=== PATIENT | male | born 1955 | race Caucasian/White ===

== ENCOUNTER 2019-03-05 10:50 | Inpatient (IN) | payer BC ==
[~2019-03-05] VITALS: Ht 185.4 cm; Wt 109.1 kg
[~2019-03-05 10:50] MED LIST: DIGO250T PO; DILT120T3 PO; ENOX100S5 SQ; HYDR-3237 PO; IRBE150T49 PO; MAGN400T26 PO; PANT40TA3 PO; POLY17PO5 PO; PRAV40TA2 PO; QUIN20TA17 PO; QUIN40TA15 PO; TRIA1TAB3 PO; WARF5TAB PO; ZOLP10TA5 PO; will bring list
--- NOTE | 2019-03-05 11:14 | NUR ---
EKG COMPLETED IN TRIAGE.
--- NOTE | 2019-03-05 11:25 | NUR ---
PT STATES AMMONIA DISTILLER IS DR. CARRASCO. NO PCP. HASN'T BEEN TO ANY MD IN "A WHILE". DENIES HAVING DX OF HEART FAILURE.
--- NOTE | 2019-03-05 11:35 | NUR ---
PT HAD COUPLE SECONDS RUN OF VTACH NOTED ON MONITOR. RN AND ORACLE PROGRAMMER ANALYST WERE AT BS, PT DID NOT NOTICE EVENT, ORACLE PROGRAMMER ANALYST WAS DRAWING BLOOD AT THE TIME. ERP WAS AT BS IMMEDIATELY FOR RECEHCK. IV STARTED. VSS. PT PLACED ON 2L O2 NC FOR SPO2 91-93% ON RA. POC RV'WD WITH PT.
[2019-03-05 11:47] LABS: BASOPHILS # (AUTO) 0.05 x10^3/uL (0-0.1); BASOPHILS % (AUTO) 1 % (0-1); EOSINOPHILS % (AUTO) 2 % (1-7); LYMPHOCYTES # (AUTO) 0.76 x10^3/uL (1-3.4); LYMPHOCYTES % (AUTO) 13 % (22-44); MD NO; MEAN CORPUSCULAR HEMOGLOBIN 33.6 pg (27.5-34.5); MEAN CORPUSCULAR HGB CONC 32.7 g/dL (33.2-36.2); MEAN CORPUSCULAR VOLUME 102.9 fL (81-97); MEAN PLATELET VOLUME 9.4 fL (7.4-10.4); MONOCYTES # (AUTO) 0.77 x10^3/uL (0.2-0.8); MONOCYTES % (AUTO) 13 % (2-9); NEUTROPHILS # (AUTO) 4.33 x10^3/uL (1.8-6.8); NEUTROPHILS % (AUTO) 72 % (42-75); PLATELET COUNT 147 x10^3/uL (130-400); RED BLOOD COUNT 4.32 x10^6/uL (4.38-5.82); RED CELL DISTRIBUTION WIDTH 15.5 % (9.4-14.8)
[2019-03-05 11:58] LABS: ANION GAP 10 mmol/L (5-15); CALCIUM 9.1 mg/dL (8.5-10.1); CHLORIDE 106 mmol/L (98-107)
[2019-03-05 12:02] LABS: TROPONIN I < 0.015 ng/mL (0.000-0.045)
[2019-03-05 12:03] LABS: D-DIMER 1.1 ug/mlFEU (0.00-0.52); INTERNATIONAL NORMALIZED RATIO 4.68 (0.93-1.1); PROTHROMBIN TIME 46.3 Seconds (9.6-11.5)
[2019-03-05] MEDS ORDERED: QUIN20TA17 PO (12:22)
[2019-03-05] MEDS ORDERED: MULTIVITAMIN PO (12:22)
[2019-03-05] MEDS ORDERED: IRBE300T16 PO (12:22)
--- NOTE | 2019-03-05 12:50 | NUR ---
RV'WD POC WITH PT. PT STABLE AT THIS TIME. DAUGHTER AT BS. AWAITING LE US.
--- NOTE | 2019-03-05 13:07 | NUR ---
PT CHANGED HIS OSTOMY BAG WITHOUT DIFFICULTY. EXTRA SUPPLIES PROVIDED TO PT. CLEAN SHIRT AND PANTS PROVIDED TO PT. D/C INSTRUCTIONS, MEDS & F/U APPT'S RV'WD WITH PT, HE VERBALIZES UNDERSTANDING. RX GIVEN X1. PT AMBULATED OUT OF ED WITHOUT DIFFICULTY.
--- NOTE | 2019-03-05 13:15 | NUR ---
SHELLIE LINK DONE AT BS.
[2019-03-05] MEDS ORDERED: FUROSEMIDE 40 MG/4 ML IV ONE (14:00)
[2019-03-05] MEDS ORDERED: FUROSEMIDE 40 MG/4 ML ONE (14:04)
--- NOTE | 2019-03-05 14:37 | NUR ---
TASK RN: GERARD COMBINE MECHANIC PAGED- WILL EVALUATE IN PERSON TO INTERROGATE PACEMAKER. PAGE SENT OUT NOW.
--- NOTE | 2019-03-05 14:53 | NUR ---
TASK RN: PT'S PACEMAKER BEING INTERROGATED BY MACHINE AT BEDSIDE NOW- RESULTS BEING SENT TO LOCAL SALVAGE WORKER.
--- NOTE | 2019-03-05 14:58 | NUR ---
TASK RN: GERARD PE MANAGER CALLED WITH INTERROGATION RESULTS- STATES PT HAD NON SUSTAINED V-TACH TODAY @ 1128 FOR 31 BEATS AND ANOTHER UNKNOWN NUMBER OF BEATS OF NON-SUSTAINED V-TACH AT 1401. STATES PT IS PACEMAKER DEPENDENT. STATES PT HAS HX OF SAME. (02/18, 02/03, AND JULY OF THIS YEAR)
[2019-03-05] MEDS ORDERED: ONDANSETRON ODT 4 MG PO PRN (15:00)
[2019-03-05] MEDS ORDERED: TRAZODONE 50MG TABLET PO PRN (15:00)
[2019-03-05] MEDS ORDERED: POLYETHYLENE GLYCOL 17 GM PACKET PO PRN ×2 (15:00)
[2019-03-05] MEDS ORDERED: ONDANSETRON 2MG/ML, 2ML IVPush PRN (15:00)
[2019-03-05] MEDS ORDERED: hydrALAzine 20 MG/ML, 1ML IVPush PRN (15:00)
[2019-03-05] MEDS ORDERED: ACETAMINOPHEN 325 MG TABLET PO PRN (15:00)
[2019-03-05] MEDS ORDERED: BUTALB/APAP/CAFFEINE 50MG/325MG/40MG PO PRN ×2 (15:00)
[2019-03-05] MEDS ORDERED: WARFARIN MECH. VALVE PROTOCOL 2.5 to 3.5 XX PRN (15:00)
[2019-03-05] MEDS ORDERED: GUAIFENESIN/DM 200-20MG, 10ML UDC PO PRN (15:00)
--- NOTE | 2019-03-05 15:00 | NUR ---
HOSPITALIST WAS IN TO SEE PT. PT AMBULATED TO BR WITHOUT DIFFICULTY.
[2019-03-05 16:12] VITALS: BP 165/100
[2019-03-05] MEDS ORDERED: PANTOPROZOLE 40MG TABLET PO SCH (16:30)
[2019-03-05] MEDS ORDERED: FUROSEMIDE 40 MG TABLET PO SCH (17:00)
[2019-03-05] MEDS: FUROSEMIDE 40 MG/4 ML IV SCH (17:02)
[2019-03-05] MEDS ORDERED: [UNRECOGNIZED DRUG - REMARK] MC ONE (18:00)
[2019-03-05] MEDS: CARVEDILOL 3.125 MG TABLET PO SCH (18:05)
[2019-03-05 20:34] VITALS: BP 126/84
[2019-03-05] MEDS: PRAVASTATIN 40 MG TABLET PO SCH (21:05)
[2019-03-05] MEDS: DILTIAZEM 120 MG TABLET PO SCH (21:06)
[2019-03-05] MEDS: ZOLPIDEM 10MG TABLET PO PRN (22:45)
[2019-03-06 00:30] VITALS: BP 118/75
[2019-03-06 05:35] LABS: BASOPHILS # (AUTO) 0.06 x10^3/uL (0-0.1); BASOPHILS % (AUTO) 1 % (0-1); EOSINOPHILS # (AUTO) 0.11 x10^3/uL (0-0.4); EOSINOPHILS % (AUTO) 2 % (1-7); LYMPHOCYTES # (AUTO) 0.61 x10^3/uL (1-3.4); LYMPHOCYTES % (AUTO) 10 % (22-44); MD NO; MEAN CORPUSCULAR HEMOGLOBIN 32.9 pg (27.5-34.5); MEAN CORPUSCULAR HGB CONC 32.6 g/dL (33.2-36.2); MEAN CORPUSCULAR VOLUME 100.9 fL (81-97); MEAN PLATELET VOLUME 9.6 fL (7.4-10.4); MONOCYTES # (AUTO) 0.72 x10^3/uL (0.2-0.8); MONOCYTES % (AUTO) 12 % (2-9); NEUTROPHILS # (AUTO) 4.51 x10^3/uL (1.8-6.8); NEUTROPHILS % (AUTO) 75 % (42-75); PLATELET COUNT 118 x10^3/uL (130-400); RED BLOOD COUNT 3.92 x10^6/uL (4.38-5.82); RED CELL DISTRIBUTION WIDTH 15.5 % (9.4-14.8)
[2019-03-06 05:41] LABS: INTERNATIONAL NORMALIZED RATIO 4.62 (0.93-1.1); PROTHROMBIN TIME 45.7 Seconds (9.6-11.5)
[2019-03-06 05:42] LABS: CHLORIDE 106 mmol/L (98-107)
[2019-03-06 05:49] LABS: ALANINE AMINOTRANSFERASE 38 U/L (12-78); ALBUMIN 3.3 g/dL (3.4-5.0); ALKALINE PHOSPHATASE 102 U/L (45-117); ANION GAP 6 mmol/L (5-15); BILIRUBIN,TOTAL 1.5 mg/dL (0.2-1.0); CALCIUM 8.5 mg/dL (8.5-10.1); CREATININE 0.89 mg/dL (0.7-1.3); TOTAL PROTEIN 6.8 g/dL (6.4-8.2)
[2019-03-06 06:10] VITALS: BP 159/98
[2019-03-06] MEDS: CARVEDILOL 3.125 MG TABLET PO SCH (06:15)
[2019-03-06 07:17] VITALS: BP 152/106
[2019-03-06] MEDS ORDERED: HOLD COUMADIN MC PRN (08:00)
[2019-03-06] MEDS: FUROSEMIDE 40 MG/4 ML IV SCH ×2 (08:16→16:56)
[2019-03-06] MEDS: IRBESARTAN 300 MG TABLET PO SCH (08:16)
[2019-03-06] MEDS: DILTIAZEM 120 MG TABLET PO SCH (08:16)
[2019-03-06] MEDS: TRIAMTERENE-HCTZ 37.5/25 MG TABLET PO SCH (08:17)
[2019-03-06] MEDS ORDERED: CARVEDILOL 3.125 MG TABLET PO ONE (08:30)
[2019-03-06] MEDS: POTASSIUM CHLORIDE 20 MEQ TAB.ER.PRT PO SCH ×2 (08:53→16:56)
[2019-03-06] MEDS ORDERED: QUINAPRIL 20MG TABLET PO SCH (09:00)
[2019-03-06 13:50] VITALS: BP 104/68
[2019-03-06] MEDS: CARVEDILOL 6.25 MG TABLET PO SCH (16:56)
[2019-03-06 16:57] VITALS: BP 132/82
[2019-03-06] MEDS: PRAVASTATIN 40 MG TABLET PO SCH (19:42)
[2019-03-06 19:45] VITALS: BP 102/76
[2019-03-06] MEDS: ZOLPIDEM 10MG TABLET PO PRN (22:38)
[2019-03-07 01:35] VITALS: BP 100/58
[2019-03-07 05:23] LABS: INTERNATIONAL NORMALIZED RATIO 3.27 (0.93-1.1); PROTHROMBIN TIME 32.8 Seconds (9.6-11.5)
[2019-03-07 05:26] VITALS: BP 141/98
[2019-03-07] MEDS: CARVEDILOL 6.25 MG TABLET PO SCH (05:26)
[2019-03-07 05:30] LABS: ALBUMIN 3.1 g/dL (3.4-5.0); ANION GAP 6 mmol/L (5-15); CALCIUM 8.5 mg/dL (8.5-10.1); CHLORIDE 105 mmol/L (98-107)
[2019-03-07 05:35] LABS: ALANINE AMINOTRANSFERASE 37 U/L (12-78); ALKALINE PHOSPHATASE 98 U/L (45-117); BILIRUBIN,TOTAL 1.3 mg/dL (0.2-1.0); CREATININE 0.93 mg/dL (0.7-1.3); TOTAL PROTEIN 6.1 g/dL (6.4-8.2)
[2019-03-07 07:23] VITALS: BP 118/84
[2019-03-07] MEDS: DILTIAZEM 120 MG TABLET PO SCH (08:39)
[2019-03-07] MEDS: FUROSEMIDE 40 MG/4 ML IV SCH ×2 (08:40→17:19)
[2019-03-07] MEDS: TRIAMTERENE-HCTZ 37.5/25 MG TABLET PO SCH (08:40)
[2019-03-07] MEDS: POTASSIUM CHLORIDE 20 MEQ TAB.ER.PRT PO SCH ×2 (08:40→17:20)
[2019-03-07] MEDS: IRBESARTAN 300 MG TABLET PO SCH (08:40)
[2019-03-07 13:23] VITALS: BP 125/85
[2019-03-07] MEDS: CARVEDILOL 12.5 MG TABLET PO SCH (17:19)
[2019-03-07] MEDS ORDERED: WARFARIN 2.5 MG TABLET PO-COUM ONE (18:00)
[2019-03-07 19:16] VITALS: BP 101/70
[2019-03-07] MEDS: PRAVASTATIN 40 MG TABLET PO SCH (21:50)
[2019-03-07] MEDS: ZOLPIDEM 10MG TABLET PO PRN (22:03)
[2019-03-08 00:18] VITALS: BP 122/85
[2019-03-08 06:02] LABS: INTERNATIONAL NORMALIZED RATIO 2.27 (0.93-1.1); PROTHROMBIN TIME 23.1 Seconds (9.6-11.5)
[2019-03-08 06:05] LABS: BASOPHILS # (AUTO) 0.03 x10^3/uL (0-0.1); BASOPHILS % (AUTO) 1 % (0-1); EOSINOPHILS # (AUTO) 0.18 x10^3/uL (0-0.4); EOSINOPHILS % (AUTO) 3 % (1-7); LYMPHOCYTES # (AUTO) 0.77 x10^3/uL (1-3.4); LYMPHOCYTES % (AUTO) 15 % (22-44); MD NO; MEAN CORPUSCULAR HEMOGLOBIN 33.3 pg (27.5-34.5); MEAN CORPUSCULAR HGB CONC 32.1 g/dL (33.2-36.2); MEAN CORPUSCULAR VOLUME 103.6 fL (81-97); MEAN PLATELET VOLUME 9.7 fL (7.4-10.4); MONOCYTES # (AUTO) 0.71 x10^3/uL (0.2-0.8); MONOCYTES % (AUTO) 14 % (2-9); NEUTROPHILS # (AUTO) 3.57 x10^3/uL (1.8-6.8); NEUTROPHILS % (AUTO) 68 % (42-75); PLATELET COUNT 110 x10^3/uL (130-400)
[2019-03-08 06:06] LABS: ALBUMIN 3.2 g/dL (3.4-5.0); ANION GAP 5 mmol/L (5-15); CALCIUM 8.9 mg/dL (8.5-10.1); CHLORIDE 103 mmol/L (98-107)
[2019-03-08 06:12] LABS: ALANINE AMINOTRANSFERASE 38 U/L (12-78); ALKALINE PHOSPHATASE 97 U/L (45-117); BILIRUBIN,TOTAL 1.2 mg/dL (0.2-1.0); CREATININE 1.01 mg/dL (0.7-1.3); TOTAL PROTEIN 6.5 g/dL (6.4-8.2)
[2019-03-08] MEDS: CARVEDILOL 12.5 MG TABLET PO SCH (06:28)
[2019-03-08 06:44] VITALS: BP 126/87
[2019-03-08] MEDS: FUROSEMIDE 40 MG/4 ML IV SCH (08:22)
[2019-03-08] MEDS: POTASSIUM CHLORIDE 20 MEQ TAB.ER.PRT PO SCH (08:23)
[2019-03-08] MEDS: DILTIAZEM 120 MG TABLET PO SCH (08:23)
[2019-03-08 10:30] VITALS: BP 114/76
[2019-03-08] MEDS ORDERED: CARVEDILOL 12.5 MG TABLET PO ONE (10:30)
[2019-03-08] MEDS ORDERED: IRBESARTAN 150 MG TABLET PO SCH (10:30)
[2019-03-08 12:28] VITALS: BP 108/76
[2019-03-08] MEDS ORDERED: IRBE150T49 PO (15:44)
[2019-03-08] MEDS ORDERED: CARV25TA12 PO (15:44)
[2019-03-08] MEDS ORDERED: ZOLP5TAB PO (15:44)
[2019-03-08] MEDS ORDERED: POTA10TA5 PO (15:44)
[2019-03-08] MEDS ORDERED: PRAV40TA2 PO (15:44)
[2019-03-08] MEDS ORDERED: FURO20TA3 PO (15:44)
[2019-03-08] MEDS ORDERED: DILT120T3 PO (15:44)
[2019-03-08] MEDS ORDERED: FUROSEMIDE 20 MG TABLET PO SCH (17:00)
[2019-03-08] MEDS ORDERED: POTASSIUM CHLORIDE 10 MEQ TABLET.ER PO SCH (17:00)
[2019-03-08] MEDS ORDERED: CARVEDILOL 25 MG TABLET PO SCH (18:00)
[2019-03-08] MEDS ORDERED: WARFARIN 7.5 MG TABLET PO-COUM ONE (18:00)
[2019-03-09] MEDS ORDERED: IRBESARTAN 150 MG TABLET PO SCH (09:00)
== END 2019-03-08 17:00 | disposition home or self-care (01) | DRG 292 ==
LOC: ED 11:59 → EDIP 13:50 → 5SO 15:56 → DCLOUNGE 03-08 16:41
PROVIDERS: ADMIT Family Medicine; ATTEND Family Medicine
PROC: 4B02XSZ Measurement of Cardiac Pacemaker, External Approach (ICD-10-PCS; principal; 2019-03-05)
DX: I11.0 Hypertensive heart disease with heart failure (principal); D68.69 Other thrombophilia; I48.20 Chronic atrial fibrillation, unspecified; I47.2 Ventricular tachycardia; E78.5 Hyperlipidemia, unspecified; F17.290 Nicotine dependence, other tobacco product, uncomplicated; I50.9 Heart failure, unspecified; K21.9 Gastro-esophageal reflux disease without esophagitis; G47.33 Obstructive sleep apnea (adult) (pediatric); Z79.01 Long term (current) use of anticoagulants; Z86.718 Personal history of other venous thrombosis and embolism; Z91.19 Patient's noncompliance with other medical treatment and regimen; Z95.0 Presence of cardiac pacemaker; Z95.2 Presence of prosthetic heart valve
CPT/HCPCS: 36415; 99285; C8929; 71045; 80048; 80053; 82040; 83735; 83880; 84100; 84484; 85025; 85379; 85610; 85730; 93970; G0378; J1940; Q9957; J0360

== ENCOUNTER 2020-06-06 08:50 | Outpatient (CLI) | payer BC ==
[~2020-06-06 08:50] MED LIST changes: +CARV25TA12 PO; -DIGO250T PO; +DIGO250T3 PO; +FURO20TA3 PO; +IRBE300T8 PO; +MULTIVITAMIN PO; +POTA10TA5 PO; -WARF5TAB PO; +WARF5TAB2 PO; +ZOLP5TAB PO
== END 2020-06-06 23:59 | disposition home or self-care (01) ==
LOC: CFH 08:50
PROVIDERS: ATTEND Internal Medicine Cardiovascular Disease
DX: I08.8 Other rheumatic multiple valve diseases (principal); I27.20 Pulmonary hypertension, unspecified
CPT/HCPCS: 93306